=== PATIENT | female | born 1960 | race African-American/Black ===

== ENCOUNTER 2018-05-03 12:59 | Inpatient (IN) | payer OTHER ==
[2018-05-03 14:22] VITALS: BMI 18.8
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
[2018-05-03] MEDS ORDERED: NICOTINE POLACRILEX 2 MG GUM BC PRN (17:22)
[2018-05-03] MEDS ORDERED: MAG HYDROX/AL HYDROX/SIMETH 30 ML UNIT-DOSE CUP PO PRN (17:22)
[2018-05-03] MEDS ORDERED: diazePAM 5 MG TABLET PO PRN (17:22)
[2018-05-03] MEDS ORDERED: guaiFENesin/D-METHORPHAN HB 10 ML UNIT-DOSE CUPS PO PRN (17:22)
[2018-05-03] MEDS ORDERED: P-EPHED 60MG/TRIPROLIDI 2.5MG TABLET PO PRN (17:22)
[2018-05-03] MEDS ORDERED: ACETAMINOPHEN 325 MG TABLET (FP) PO PRN (17:22)
[2018-05-03] MEDS ORDERED: MAGNESIUM HYDROX 2400MG/30ML ORAL SUSPENSION 30 ML CUP PO PRN (17:22)
[2018-05-03] MEDS ORDERED: IBUPROFEN 400 MG TABLET (FP) PO PRN (17:22)
[2018-05-03] MEDS ORDERED: MAGNESIUM CITRATE 300 ML BOTTLE PO PRN (17:22)
[2018-05-03] MEDS ORDERED: MENTHOL/PHENOL 1 EACH UD MM PRN (17:22)
[2018-05-03] MEDS ORDERED: MELATONIN 5 MG TABLETS PO PRN (22:00)
[2018-05-03] MEDS: QUEtiapine FUMARATE 100 MG TABLET (FP) PO SCH (22:39)
[2018-05-03] MEDS: THIAMINE HCL 100 MG TABLET (FP) PO SCH (22:39)
[2018-05-03] MEDS: diazePAM 5 MG TABLET PO SCH (22:39)
[2018-05-04] MEDS: diazePAM 5 MG TABLET PO SCH ×3 (05:31→22:21)
[2018-05-04] MEDS ORDERED: METHADONE HCL 40 MG DISPERSABLE TABLET PO SCH (08:00)
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
[2018-05-04 10:10] LABS: HEMATOCRIT 41.1 % (32.4-45.2); MCH 33.3 pg (25.7-33.7); MCHC 34.1 g/dl (32.0-36.0); MEAN CELL VOLUME 97.7 fl (80-96); MEAN PLT VOLUME 8.1 fl (7.5-11.1); PLATELET COUNT 217 K/MM3 (134-434); RBC 4.21 M/mm3 (3.60-5.2); RDW 13.2 % (11.6-15.6); WHITE BLOOD COUNT 5.3 K/mm3 (4.0-10.0)
[2018-05-04] MEDS: METHADONE HCL 40 MG DISPERSABLE TABLET PO SCH (10:31)
[2018-05-04] MEDS: PRENATAL VITAMINS W/ FOLIC ACID TABLET (FP) PO SCH (10:32)
[2018-05-04 10:53] LABS: ALBUMIN 3.4 g/dl (3.4-5.0); ALK PHOS 80 U/L (45-117); ANION GAP 5 MMOL/L (8-16); BILIRUBIN,TOTAL 0.4 mg/dL (0.2-1); BLOOD UREA NITROGEN 30 mg/dL (7-18); CALCIUM 8.9 mg/dL (8.5-10.1); CHLORIDE 107 mmol/L (98-107); CO2 28 mmol/L (21-32); GLUCOSE,RANDOM 75 mg/dL (74-106); POTASSIUM 4.4 mmol/L (3.5-5.1); SGOT/AST 18 U/L (15-37); SGPT/ALT 18 U/L (13-61); SODIUM 140 mmol/L (136-145); TOT PROT 7.1 g/dl (6.4-8.2)
[2018-05-04] MEDS: SERTRALINE HCL 50 MG TABLET (FP) PO SCH (11:13)
[2018-05-04 13:27] LABS: RPR REACTIVE 1:1 (NONREACTIVE)
[2018-05-04] MEDS ORDERED: CYCLOBENZAPRINE HCL 10 MG TABLET (FP) PO PRN (15:30)
[2018-05-04 15:38] LABS: TREPONEMA ANTIBODY REACTIVE (NONREACTIVE)
--- NOTE | 2018-05-04 18:32 | PN ---
[facility] CIWA - CIWA Score Nausea/Vomitin-No Nausea/No Vomiting Muscle Tremors: 4-Moderate,w/Arms Extend Anxiety: 0-No Anxiety, at Ease Agitation: 0-Normal Activity Paroxysmal Sweats: 3 Orientation: 2-Disoriented Date<2 days Tacttile Disturbances: 0-None Auditory Disturbances: 1-Very Mild Visual Disturbances: 2-Mild Sensitivity Headache: 0-None Present CIWA-Ar Total Score: 12 S Progress Note (SOAP) Subjective: Tremors, Body Aches, Fatigue, Sweating, Constipation. Objective: PATIENT A & O X 2. PATIENT OBSERVED AMBULATING ON UNIT. IN NO ACUTE DISTRESS. 05/04/18 18:28 Vital Signs Temperature 99.7 F H 05/04/18 13:24 Pulse Rate 71 05/04/18 13:24 Respiratory Rate 18 05/04/18 13:24 Blood Pressure 110/68 05/04/18 13:24 O2 Sat by Pulse Oximetry (%) Laboratory Tests 05/04/18 05/04/18 05/04/18 07:00 07:00 07:00 WBC 5.3 RBC 4.21 Hgb 14.0 Hct 41.1 MCV 97.7 H MCH 33.3 MCHC 34.1 RDW 13.2 Plt Count 217 MPV 8.1 Sodium 140 Potassium 4.4 Chloride 107 Carbon Dioxide 28 Anion Gap 5 L BUN 30 H Creatinine 2.0 H Creat Clearance w eGFR 25.50 Random Glucose 75 Calcium 8.9 Total Bilirubin 0.4 AST 18 ALT 18 Alkaline Phosphatase 80 Total Protein 7.1 Albumin 3.4 RPR Titer Reactive 1:1 H T.pallidum Ab (MHA) Reactive LABS NOTED. REACTIVE 1:1 RPR RESULT (MHATP: REACTIVE) NOTED. PATIENT REPORTS THAT SHE COMPLETED A FULL COURSE OF ANTIBIOTIC TREATMENT FOR SYPHILIS IN THE PAST. PATIENT ADVISED TO FOLLOW-UP WITH CHILD AND FAMILY SERVICES SPECIALIST AT '[facility]' ([place], [place]) AFTER DISCHARGE FROM DETOX UNIT FOR FURTHER MEDICAL EVALUATION. PATIENT VERBALIZED UNDERSTANDING OF RECOMMENDATION. 05/04/18 18:29 05/04/18 18:30 Assessment: 05/04/18 18:28 WITHDRAWAL SYMPTOMS. Plan: CONTINUE DETOX. D/C MAGNESIUM-CONTAINING MEDS. FOR ABNORMAL ADMISSION RENAL LAB VALUES. BMP ON 05/06/2018 FOR ABNORMAL ADMISSION RENAL LAB VALUES.
[2018-05-04] MEDS: THIAMINE HCL 100 MG TABLET (FP) PO SCH (22:21)
[2018-05-04] MEDS: QUEtiapine FUMARATE 100 MG TABLET (FP) PO SCH (22:21)
[2018-05-05] MEDS: METHADONE HCL 40 MG DISPERSABLE TABLET PO SCH (06:16)
[2018-05-05] MEDS: PRENATAL VITAMINS W/ FOLIC ACID TABLET (FP) PO SCH (10:05)
[2018-05-05] MEDS: SERTRALINE HCL 50 MG TABLET (FP) PO SCH (10:05)
[2018-05-05] MEDS: diazePAM 5 MG TABLET PO SCH ×2 (10:05→22:28)
--- NOTE | 2018-05-05 16:21 | PN ---
[facility] CIWA - CIWA Score Nausea/Vomitin-No Nausea/No Vomiting Muscle Tremors: 2 Anxiety: 0-No Anxiety, at Ease Agitation: 0-Normal Activity Paroxysmal Sweats: 3 Orientation: 2-Disoriented Date<2 days Tacttile Disturbances: 1-Very Mild Itch/Numbness Auditory Disturbances: 1-Very Mild Visual Disturbances: 2-Mild Sensitivity Headache: 0-None Present CIWA-Ar Total Score: 11 S Progress Note (SOAP) Subjective: Tremors, Fatigue, Body Aches, Fatigue, Sweating. Objective: PATIENT A & O X 2 (UNCERTAIN ABOUT CURRENT DAY / DATE). PATIENT OBSERVED AMBULATING ON UNIT. IN NO ACUTE DISTRESS. 05/05/18 16:22 Vital Signs Temperature 98.6 F 05/05/18 13:41 Pulse Rate 70 05/05/18 13:41 Respiratory Rate 18 05/05/18 13:41 Blood Pressure 112/76 05/05/18 13:41 O2 Sat by Pulse Oximetry (%) Laboratory Tests 05/04/18 05/04/18 05/04/18 07:00 07:00 07:00 WBC 5.3 RBC 4.21 Hgb 14.0 Hct 41.1 MCV 97.7 H MCH 33.3 MCHC 34.1 RDW 13.2 Plt Count 217 MPV 8.1 Sodium 140 Potassium 4.4 Chloride 107 Carbon Dioxide 28 Anion Gap 5 L BUN 30 H Creatinine 2.0 H Creat Clearance w eGFR 25.50 Random Glucose 75 Calcium 8.9 Total Bilirubin 0.4 AST 18 ALT 18 Alkaline Phosphatase 80 Total Protein 7.1 Albumin 3.4 RPR Titer Reactive 1:1 H T.pallidum Ab (MHA) Reactive LABS NOTED. Assessment: 05/05/18 16:23 WITHDRAWAL SYMPTOMS. Plan: CONTINUE DETOX. BMP SCHEDULED FOR TOMORROW AM FOR ABNORMAL ADMISSION RENAL LAB RESULTS (NO HISTORY OF RENAL DISEASE REPORTED BY PATIENT AT TIME OF ADMISSION TO DETOX UNIT) .
[2018-05-05] MEDS: THIAMINE HCL 100 MG TABLET (FP) PO SCH (22:27)
[2018-05-05] MEDS: QUEtiapine FUMARATE 100 MG TABLET (FP) PO SCH (22:28)
[2018-05-06] MEDS: METHADONE HCL 40 MG DISPERSABLE TABLET PO SCH (06:15)
--- NOTE | 2018-05-06 09:48 | PN ---
S Progress Note (SOAP) Subjective: feeling better less tremor mild sweating social with peers in day room Objective: 05/06/18 09:47 Vital Signs Temperature 97.8 F 05/06/18 09:35 Pulse Rate 81 05/06/18 09:35 Respiratory Rate 18 05/06/18 09:35 Blood Pressure 100/70 05/06/18 09:35 O2 Sat by Pulse Oximetry (%) Laboratory Last Values WBC 5.3 K/mm3 (4.0-10.0) 05/04/18 07:00 RBC 4.21 M/mm3 (3.60-5.2) 05/04/18 07:00 Hgb 14.0 GM/dL (10.7-15.3) 05/04/18 07:00 Hct 41.1 % (32.4-45.2) 05/04/18 07:00 MCV 97.7 fl (80-96) H 05/04/18 07:00 MCH 33.3 pg (25.7-33.7) 05/04/18 07:00 MCHC 34.1 g/dl (32.0-36.0) 05/04/18 07:00 RDW 13.2 % (11.6-15.6) 05/04/18 07:00 Plt Count 217 K/MM3 (134-434) 05/04/18 07:00 MPV 8.1 fl (7.5-11.1) 05/04/18 07:00 Sodium 140 mmol/L (136-145) 05/04/18 07:00 Potassium 4.4 mmol/L (3.5-5.1) 05/04/18 07:00 Chloride 107 mmol/L (98-107) 05/04/18 07:00 Carbon Dioxide 28 mmol/L (21-32) 05/04/18 07:00 Anion Gap 5 MMOL/L (8-16) L 05/04/18 07:00 BUN 30 mg/dL (7-18) H 05/04/18 07:00 Creatinine 2.0 mg/dL (0.55-1.3) H 05/04/18 07:00 Creat Clearance w eGFR 25.50 (>60) 05/04/18 07:00 Random Glucose 75 mg/dL (74-106) 05/04/18 07:00 Calcium 8.9 mg/dL (8.5-10.1) 05/04/18 07:00 Total Bilirubin 0.4 mg/dL (0.2-1) 05/04/18 07:00 AST 18 U/L (15-37) 05/04/18 07:00 ALT 18 U/L (13-61) 05/04/18 07:00 Alkaline Phosphatase 80 U/L (45-117) 05/04/18 07:00 Total Protein 7.1 g/dl (6.4-8.2) 05/04/18 07:00 Albumin 3.4 g/dl (3.4-5.0) 05/04/18 07:00 RPR Titer Reactive 1:1 (NONREACTIVE) H 05/04/18 07:00 T.pallidum Ab (MHA) Reactive (NONREACTIVE) 05/04/18 07:00 lab noted Assessment: 05/06/18 09:47 mild alcohol withdrawal sx 05/06/18 09:47 Plan: continue detox
--- NOTE | 2018-05-06 09:49 | PN ---
S CIWA - CIWA Score Nausea/Vomitin-No Nausea/No Vomiting Muscle Tremors: 2 Anxiety: 1-Mildly Anxious Agitation: 2 Paroxysmal Sweats: No Perspiration Orientation: 0-Oriented Tacttile Disturbances: 0-None Auditory Disturbances: 0-None Visual Disturbances: 0-None Headache: 2-Mild CIWA-Ar Total Score: 7
[2018-05-06] MEDS: PRENATAL VITAMINS W/ FOLIC ACID TABLET (FP) PO SCH (10:14)
[2018-05-06] MEDS: SERTRALINE HCL 50 MG TABLET (FP) PO SCH (10:14)
[2018-05-06] MEDS: diazePAM 5 MG TABLET PO SCH ×2 (10:14→22:21)
[2018-05-06 10:37] LABS: ANION GAP 5 MMOL/L (8-16); BLOOD UREA NITROGEN 36 mg/dL (7-18); CALCIUM 8.6 mg/dL (8.5-10.1); CHLORIDE 106 mmol/L (98-107); CO2 29 mmol/L (21-32); GLUCOSE,RANDOM 74 mg/dL (74-106); POTASSIUM 4.1 mmol/L (3.5-5.1); SODIUM 140 mmol/L (136-145)
[2018-05-06] MEDS: THIAMINE HCL 100 MG TABLET (FP) PO SCH (22:21)
[2018-05-06] MEDS: QUEtiapine FUMARATE 100 MG TABLET (FP) PO SCH (22:30)
[2018-05-07] MEDS: METHADONE HCL 40 MG DISPERSABLE TABLET PO SCH (05:40)
[2018-05-07] MEDS ORDERED: diazePAM 5 MG TABLET PO SCH (10:00)
[2018-05-07] MEDS: SERTRALINE HCL 50 MG TABLET (FP) PO SCH (10:25)
[2018-05-07] MEDS: PRENATAL VITAMINS W/ FOLIC ACID TABLET (FP) PO SCH (10:26)
[2018-05-07 13:40] VITALS: BP 98/64; PULSE 64; TEMP 98
--- NOTE | 2018-05-07 14:07 | DS ---
[facility] Detox Discharge Summary Admission Date: 05/03/18 Discharge Date: 05/07/18 - History Present History: Alcohol Dependence Additional Comments: 58 years old female admitted on 05/03/18 for alcohol withdrawal stabilization [facility] Physical Exam Results Vital Signs: Vital Signs Temperature 98.0 F 05/07/18 13:39 Pulse Rate 64 05/07/18 13:39 Respiratory Rate 18 05/07/18 13:39 Blood Pressure 98/64 05/07/18 13:39 O2 Sat by Pulse Oximetry (%) Pertinent Admission Physical Exam Findings: alcohol withdrawal sx Laboratory Last Values WBC 5.3 K/mm3 (4.0-10.0) 05/04/18 07:00 RBC 4.21 M/mm3 (3.60-5.2) 05/04/18 07:00 Hgb 14.0 GM/dL (10.7-15.3) 05/04/18 07:00 Hct 41.1 % (32.4-45.2) 05/04/18 07:00 MCV 97.7 fl (80-96) H 05/04/18 07:00 MCH 33.3 pg (25.7-33.7) 05/04/18 07:00 MCHC 34.1 g/dl (32.0-36.0) 05/04/18 07:00 RDW 13.2 % (11.6-15.6) 05/04/18 07:00 Plt Count 217 K/MM3 (134-434) 05/04/18 07:00 MPV 8.1 fl (7.5-11.1) 05/04/18 07:00 Sodium 140 mmol/L (136-145) 05/06/18 07:45 Potassium 4.1 mmol/L (3.5-5.1) 05/06/18 07:45 Chloride 106 mmol/L (98-107) 05/06/18 07:45 Carbon Dioxide 29 mmol/L (21-32) 05/06/18 07:45 Anion Gap 5 MMOL/L (8-16) L 05/06/18 07:45 BUN 36 mg/dL (7-18) H 05/06/18 07:45 Creatinine 2.0 mg/dL (0.55-1.3) H 05/06/18 07:45 Creat Clearance w eGFR 25.50 (>60) 05/06/18 07:45 Random Glucose 74 mg/dL (74-106) 05/06/18 07:45 Calcium 8.6 mg/dL (8.5-10.1) 05/06/18 07:45 Total Bilirubin 0.4 mg/dL (0.2-1) 05/04/18 07:00 AST 18 U/L (15-37) 05/04/18 07:00 ALT 18 U/L (13-61) 05/04/18 07:00 Alkaline Phosphatase 80 U/L (45-117) 05/04/18 07:00 Total Protein 7.1 g/dl (6.4-8.2) 05/04/18 07:00 Albumin 3.4 g/dl (3.4-5.0) 05/04/18 07:00 RPR Titer Reactive 1:1 (NONREACTIVE) H 05/04/18 07:00 T.pallidum Ab (MHA) Reactive (NONREACTIVE) 05/04/18 07:00 lab noted chronic renal insufficiency - Treatment Hospital Course: Detox Protocol Followed, Detoxed Safely, Responded well, Discharged Condition Good, Rehab Referral Accepted Patient has Accepted a Rehab Referral to: [facility] - Medication Discharge Medications: Ambulatory Orders Multivitamins [Multivit ([facility] Formulary)] 1 tab PO HS 05/03/18 Quetiapine Fumarate [Seroquel] 100 mg PO HS 05/03/18 Sennosides [Senna] 8.6 mg PO HS PRN 05/03/18 Sertraline HCl [Zoloft] 100 mg PO DAILY 05/03/18 Topiramate [Topamax -] 50 mg PO BID 05/03/18 - Diagnosis (1) Renal insufficiency, mild Current Visit: Yes Status: Chronic (2) Alcohol dependence with uncomplicated withdrawal Current Visit: Yes Status: Acute (3) Nicotine dependence Current Visit: Yes Status: Acute Qualifiers: Nicotine product type: cigarettes Substance use status: in withdrawal Qualified Code(s): F17.213 - Nicotine dependence, cigarettes, with withdrawal (4) Methadone maintenance therapy patient Current Visit: Yes Status: Chronic - AMA Did Patient Leave Against Medical Advice: No
== END 2018-05-07 14:45 | disposition other institution (70) | DRG 773 ==
LOC: YASAS 12:59 → Y3N 17:14
PROVIDERS: ADMIT Surgery; ATTEND Surgery
PROC: HZ2ZZZZ Detoxification Services for Substance Abuse Treatment (ICD-10-PCS; principal; 2018-05-03)
DX: F10.230 Alcohol dependence with withdrawal, uncomplicated (principal); F11.20 Opioid dependence, uncomplicated; F14.20 Cocaine dependence, uncomplicated; F17.213 Nicotine dependence, cigarettes, with withdrawal; F19.24 Other psychoactive substance dependence with psychoactive substance-induced mood disorder; N28.9 Disorder of kidney and ureter, unspecified; Z87.42 Personal history of other diseases of the female genital tract
CPT/HCPCS: 36415; 80048; 80053; 85027; 86593; 86780

== ENCOUNTER 2018-05-07 14:42 | Inpatient (IN) | payer OTHER ==
--- NOTE | 2018-05-07 14:09 | HP ---
[facility] Rehab Assess/Revision - Admission History Admitted to Rehab from: [facility] Date of Admission to Rehab: 05/07/18 - Findings Detox History & Physical reviewed: Yes Concur with findings: Yes Comments/Additional Findings: transferred from detox to rehab admission as per protocol Inpatient Rehab Admission - Rehab Decision to Admit Inpatient rehab admission?: Yes - Initial Determination Are CD services needed?: Yes Free of communicable disease: Yes Not in need of hospitalization: Yes - Rehab Admission Criteria Previous failed treatment: Yes Poor recovery environment: Yes Comorbidities: Yes Lacks judgement: No Patient is meeting Inpatient Rehab admission criteria:: Yes
[~2018-05-07 14:42] MED LIST: ACETAMINOPHEN 325 MG TABLET (FP) PO PRN; LOPERAMIDE HCL 2 MG CAPSULE PO PRN; MENTHOL/PHENOL 1 EACH UD MM PRN; NICOTINE POLACRILEX 2 MG GUM BUC PRN; P-EPHED 60MG/TRIPROLIDI 2.5MG TABLET PO PRN; guaiFENesin/D-METHORPHAN HB 10 ML UNIT-DOSE CUPS PO PRN
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
[2018-05-07] MEDS ORDERED: NICOTINE 14 MG/24 HOURS TOPICAL PATCH TD PRN (16:00)
[2018-05-07] MEDS: THIAMINE HCL 100 MG TABLET (FP) PO SCH (21:34)
[2018-05-07] MEDS: TOPIRAMATE 25 MG TABLET (FP) PO SCH (21:35)
[2018-05-07] MEDS: QUEtiapine FUMARATE 100 MG TABLET (FP) PO SCH (21:35)
[2018-05-07] MEDS ORDERED: MELATONIN 5 MG TABLETS PO PRN (22:00)
[2018-05-07] MEDS ORDERED: PT OWN MED DRAWER 7, Y5N ONE (22:10)
[2018-05-08] MEDS ORDERED: METHADONE HCL 10 MG TABLET PO SCH (07:45)
[2018-05-08] MEDS: METHADONE HCL 40 MG DISPERSABLE TABLET PO SCH (08:00)
[2018-05-08] MEDS: PRENATAL VITAMINS W/ FOLIC ACID TABLET (FP) PO SCH (10:12)
[2018-05-08] MEDS: TOPIRAMATE 25 MG TABLET (FP) PO SCH ×2 (10:12→21:26)
[2018-05-08] MEDS: SERTRALINE HCL 50 MG TABLET (FP) PO SCH (10:13)
--- NOTE | 2018-05-08 11:15 | PN ---
[facility] Progress Note Note: PATIENT SEEN FOR C/O CHRONIC LOW BACK PAIN. PATIENT DENIES RECENT INJURIES AND DENIES NUMBNESS AND TINGLING TO LEGS. PATIENT STATES SHE HAS HAD LBP X YEARS. Vital Signs Temperature 98.0 F 05/08/18 07:17 Pulse Rate 69 05/08/18 07:17 Respiratory Rate 18 05/08/18 07:17 Blood Pressure 102/65 05/08/18 07:17 O2 Sat by Pulse Oximetry (%) PE: ALERT AND ORIENTED X 3 SKIN WARM AND DRY EXT FULL ROM, NO EDEMA AMB AD BENNY A/P: LBP WILL ADD FLEXERIL 10MG TID CONTINUE TO MONITOR CLINICALLY
[2018-05-08] MEDS: CYCLOBENZAPRINE HCL 10 MG TABLET (FP) PO SCH ×2 (14:19→21:26)
[2018-05-08] MEDS: QUEtiapine FUMARATE 100 MG TABLET (FP) PO SCH (21:26)
[2018-05-08] MEDS: THIAMINE HCL 100 MG TABLET (FP) PO SCH (21:26)
[2018-05-08 21:32] LABS: URINE APPEARANCE CLEAR; URINE BILIRUBIN NEGATIVE (<2.0 mg/dL); URINE COLOR STRAW; URINE GLUCOSE (UA) NEGATIVE (NEGATIVE); URINE KETONE NEGATIVE (NEGATIVE); URINE LEUK ESTERASE 3+ (NEGATIVE); URINE NITRITE NEGATIVE (NEGATIVE); URINE PROTEIN NEGATIVE (NEGATIVE); URINE UROBILINOGEN NEGATIVE mg/dL (0.2-1.0)
[2018-05-08 21:42] LABS: EPI CELLS RARE /HPF (FEW); URINE MUCUS RARE
[2018-05-08] MEDS ORDERED: PT OWN MED DRAWER 7, Y5N ONE (23:20)
[2018-05-09] MEDS: METHADONE HCL 40 MG DISPERSABLE TABLET PO SCH (06:57)
[2018-05-09] MEDS: CYCLOBENZAPRINE HCL 10 MG TABLET (FP) PO SCH ×3 (06:58→21:39)
[2018-05-09] MEDS: TOPIRAMATE 25 MG TABLET (FP) PO SCH ×2 (09:50→21:39)
[2018-05-09] MEDS: PRENATAL VITAMINS W/ FOLIC ACID TABLET (FP) PO SCH (09:50)
[2018-05-09] MEDS: SERTRALINE HCL 50 MG TABLET (FP) PO SCH (09:50)
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
[2018-05-09] MEDS: THIAMINE HCL 100 MG TABLET (FP) PO SCH (21:38)
[2018-05-09] MEDS: QUEtiapine FUMARATE 100 MG TABLET (FP) PO SCH (21:39)
[2018-05-10] MEDS: METHADONE HCL 40 MG DISPERSABLE TABLET PO SCH (06:41)
[2018-05-10] MEDS: CYCLOBENZAPRINE HCL 10 MG TABLET (FP) PO SCH ×3 (06:42→21:20)
[2018-05-10] MEDS: PRENATAL VITAMINS W/ FOLIC ACID TABLET (FP) PO SCH (09:39)
[2018-05-10] MEDS: SERTRALINE HCL 50 MG TABLET (FP) PO SCH (09:39)
[2018-05-10] MEDS: TOPIRAMATE 25 MG TABLET (FP) PO SCH ×2 (09:39→21:20)
[2018-05-10] MEDS: THIAMINE HCL 100 MG TABLET (FP) PO SCH (21:20)
[2018-05-10] MEDS: QUEtiapine FUMARATE 100 MG TABLET (FP) PO SCH (21:20)
[2018-05-11] MEDS: CYCLOBENZAPRINE HCL 10 MG TABLET (FP) PO SCH ×3 (06:53→21:26)
[2018-05-11] MEDS: METHADONE HCL 40 MG DISPERSABLE TABLET PO SCH (06:53)
[2018-05-11] MEDS: SERTRALINE HCL 50 MG TABLET (FP) PO SCH (09:58)
[2018-05-11] MEDS: PRENATAL VITAMINS W/ FOLIC ACID TABLET (FP) PO SCH (09:58)
[2018-05-11] MEDS: TOPIRAMATE 25 MG TABLET (FP) PO SCH ×2 (09:59→21:27)
--- NOTE | 2018-05-11 16:09 | PN ---
S Progress Note Note: PT C/O BILATERAL FEET TIGHTNESS AND SWELLING "SINCE I CAME TO TREATMENT". DENIES TRUAMA. Vital Signs - 24 hr 05/11/18 03:30 Respiratory 18 Rate EXTREMITIES:SLIGHT EDEMA LEFT>RIGHT. NON-PITTING AND NO REDNESS. A:EDEMA PLAN:ELEVATE BOTH LEGS WHILE IN BED. MONITOR SX AND RE-EVALUATE
[2018-05-11] MEDS: QUEtiapine FUMARATE 100 MG TABLET (FP) PO SCH (21:26)
[2018-05-11] MEDS: THIAMINE HCL 100 MG TABLET (FP) PO SCH (21:27)
[2018-05-12] MEDS: METHADONE HCL 40 MG DISPERSABLE TABLET PO SCH (07:04)
[2018-05-12] MEDS: CYCLOBENZAPRINE HCL 10 MG TABLET (FP) PO SCH ×3 (07:04→21:50)
[2018-05-12] MEDS: PRENATAL VITAMINS W/ FOLIC ACID TABLET (FP) PO SCH (10:01)
[2018-05-12] MEDS: TOPIRAMATE 25 MG TABLET (FP) PO SCH ×2 (10:01→21:50)
[2018-05-12] MEDS: SERTRALINE HCL 50 MG TABLET (FP) PO SCH (10:01)
[2018-05-12] MEDS: THIAMINE HCL 100 MG TABLET (FP) PO SCH (21:50)
[2018-05-12] MEDS: QUEtiapine FUMARATE 100 MG TABLET (FP) PO SCH (21:51)
[2018-05-13] MEDS: CYCLOBENZAPRINE HCL 10 MG TABLET (FP) PO SCH ×3 (06:57→21:43)
[2018-05-13] MEDS: METHADONE HCL 40 MG DISPERSABLE TABLET PO SCH (06:58)
[2018-05-13] MEDS: SERTRALINE HCL 50 MG TABLET (FP) PO SCH (09:42)
[2018-05-13] MEDS: TOPIRAMATE 25 MG TABLET (FP) PO SCH ×2 (09:42→21:43)
[2018-05-13] MEDS: PRENATAL VITAMINS W/ FOLIC ACID TABLET (FP) PO SCH (09:42)
[2018-05-13] MEDS: THIAMINE HCL 100 MG TABLET (FP) PO SCH (21:43)
[2018-05-13] MEDS: QUEtiapine FUMARATE 100 MG TABLET (FP) PO SCH (21:43)
[2018-05-14] MEDS: CYCLOBENZAPRINE HCL 10 MG TABLET (FP) PO SCH ×3 (06:39→21:30)
[2018-05-14] MEDS: METHADONE HCL 40 MG DISPERSABLE TABLET PO SCH (06:39)
[2018-05-14] MEDS: PRENATAL VITAMINS W/ FOLIC ACID TABLET (FP) PO SCH (09:55)
[2018-05-14] MEDS: TOPIRAMATE 25 MG TABLET (FP) PO SCH ×2 (09:55→21:30)
[2018-05-14] MEDS: SERTRALINE HCL 50 MG TABLET (FP) PO SCH (09:56)
--- NOTE | 2018-05-14 15:38 | PN ---
S Progress Note Note: Seen in f/u leg edema- much better today- says swelling down and feels better. O Vital Signs - 24 hr 05/14/18 05/14/18 05/14/18 00:30 03:30 06:54 Temperature 97.9 F Pulse Rate 64 Respiratory 18 18 18 Rate Blood Pressure 151/87 Laboratory Tests 05/08/18 15:40 Urine Color Straw Urine Appearance Clear Urine pH 7.0 Ur Specific [place] 1.011 Urine Protein Negative Urine Glucose (UA) Negative Urine Ketones Negative Urine Blood Negative Urine Nitrite Negative Urine Bilirubin Negative Urine Urobilinogen Negative Ur Leukocyte Esterase 3+ H Urine WBC (Auto) 4 Urine RBC (Auto) <1 Ur Epithelial Cells Rare Urine Mucus Rare a/p: leg edema- much better- trace/1+ edema- continue current management
[2018-05-14] MEDS: QUEtiapine FUMARATE 100 MG TABLET (FP) PO SCH (21:30)
[2018-05-14] MEDS: THIAMINE HCL 100 MG TABLET (FP) PO SCH (21:30)
[2018-05-15] MEDS: METHADONE HCL 40 MG DISPERSABLE TABLET PO SCH (06:22)
[2018-05-15] MEDS: CYCLOBENZAPRINE HCL 10 MG TABLET (FP) PO SCH ×3 (06:22→21:18)
[2018-05-15] MEDS: TOPIRAMATE 25 MG TABLET (FP) PO SCH ×2 (10:04→21:18)
[2018-05-15] MEDS: PRENATAL VITAMINS W/ FOLIC ACID TABLET (FP) PO SCH (10:04)
[2018-05-15] MEDS: SERTRALINE HCL 50 MG TABLET (FP) PO SCH (10:04)
[2018-05-15] MEDS: QUEtiapine FUMARATE 100 MG TABLET (FP) PO SCH (21:18)
[2018-05-15] MEDS: THIAMINE HCL 100 MG TABLET (FP) PO SCH (21:18)
[2018-05-16] MEDS: CYCLOBENZAPRINE HCL 10 MG TABLET (FP) PO SCH ×3 (06:23→21:23)
[2018-05-16] MEDS: METHADONE HCL 40 MG DISPERSABLE TABLET PO SCH (06:24)
[2018-05-16] MEDS: SERTRALINE HCL 50 MG TABLET (FP) PO SCH (10:09)
[2018-05-16] MEDS: TOPIRAMATE 25 MG TABLET (FP) PO SCH ×2 (10:09→21:23)
[2018-05-16] MEDS: PRENATAL VITAMINS W/ FOLIC ACID TABLET (FP) PO SCH (10:09)
[2018-05-16] MEDS: QUEtiapine FUMARATE 100 MG TABLET (FP) PO SCH (21:23)
[2018-05-16] MEDS: THIAMINE HCL 100 MG TABLET (FP) PO SCH (21:23)
[2018-05-17] MEDS: METHADONE HCL 40 MG DISPERSABLE TABLET PO SCH (06:31)
[2018-05-17] MEDS: CYCLOBENZAPRINE HCL 10 MG TABLET (FP) PO SCH ×3 (06:31→21:12)
[2018-05-17] MEDS ORDERED: PT OWN MED DRAWER 7, Y5N ONE (08:23)
[2018-05-17] MEDS: TOPIRAMATE 25 MG TABLET (FP) PO SCH ×2 (09:58→21:10)
[2018-05-17] MEDS: PRENATAL VITAMINS W/ FOLIC ACID TABLET (FP) PO SCH (09:58)
[2018-05-17] MEDS: SERTRALINE HCL 50 MG TABLET (FP) PO SCH (09:59)
[2018-05-17] MEDS: QUEtiapine FUMARATE 100 MG TABLET (FP) PO SCH (21:12)
[2018-05-17] MEDS: THIAMINE HCL 100 MG TABLET (FP) PO SCH (21:13)
[2018-05-18] MEDS: METHADONE HCL 40 MG DISPERSABLE TABLET PO SCH (06:40)
[2018-05-18] MEDS: CYCLOBENZAPRINE HCL 10 MG TABLET (FP) PO SCH ×3 (06:41→21:10)
[2018-05-18] MEDS: TOPIRAMATE 25 MG TABLET (FP) PO SCH ×2 (09:57→21:10)
[2018-05-18] MEDS: PRENATAL VITAMINS W/ FOLIC ACID TABLET (FP) PO SCH (09:57)
[2018-05-18] MEDS: SERTRALINE HCL 50 MG TABLET (FP) PO SCH (09:57)
[2018-05-18] MEDS ORDERED: MAG HYDROX/AL HYDROX/SIMETH 30 ML UNIT-DOSE CUP PO PRN (14:55)
[2018-05-18] MEDS ORDERED: MAGNESIUM CITRATE 300 ML BOTTLE PO PRN (14:55)
[2018-05-18] MEDS ORDERED: DOCUSATE SODIUM 100 MG CAPSULE (FP) PO ONE (16:30)
[2018-05-18] MEDS: MAGNESIUM HYDROX 2400MG/30ML ORAL SUSPENSION 30 ML CUP PO PRN (17:26)
[2018-05-18] MEDS ORDERED: MAG HYDROX/AL HYDROX/SIMETH -MYLANTA- ORAL SUSPENSION PO SCH (18:00)
[2018-05-18] MEDS: QUEtiapine FUMARATE 100 MG TABLET (FP) PO SCH (21:10)
[2018-05-18] MEDS: THIAMINE HCL 100 MG TABLET (FP) PO SCH (21:10)
[2018-05-18] MEDS: DOCUSATE SODIUM 100 MG CAPSULE (FP) PO SCH (21:11)
[2018-05-19] MEDS: CYCLOBENZAPRINE HCL 10 MG TABLET (FP) PO SCH ×3 (06:28→21:23)
[2018-05-19] MEDS: METHADONE HCL 40 MG DISPERSABLE TABLET PO SCH (06:29)
[2018-05-19] MEDS: DOCUSATE SODIUM 100 MG CAPSULE (FP) PO SCH ×3 (06:29→21:23)
[2018-05-19] MEDS: TOPIRAMATE 25 MG TABLET (FP) PO SCH ×2 (09:52→21:23)
[2018-05-19] MEDS: PRENATAL VITAMINS W/ FOLIC ACID TABLET (FP) PO SCH (09:53)
[2018-05-19] MEDS: SERTRALINE HCL 50 MG TABLET (FP) PO SCH (09:53)
[2018-05-19] MEDS: QUEtiapine FUMARATE 100 MG TABLET (FP) PO SCH (21:23)
[2018-05-19] MEDS: THIAMINE HCL 100 MG TABLET (FP) PO SCH (21:23)
[2018-05-20] MEDS: CYCLOBENZAPRINE HCL 10 MG TABLET (FP) PO SCH ×3 (06:21→21:15)
[2018-05-20] MEDS: DOCUSATE SODIUM 100 MG CAPSULE (FP) PO SCH ×3 (06:22→21:15)
[2018-05-20] MEDS: METHADONE HCL 40 MG DISPERSABLE TABLET PO SCH (06:22)
[2018-05-20] MEDS: TOPIRAMATE 25 MG TABLET (FP) PO SCH ×2 (09:40→21:15)
[2018-05-20] MEDS: PRENATAL VITAMINS W/ FOLIC ACID TABLET (FP) PO SCH (09:40)
[2018-05-20] MEDS: SERTRALINE HCL 50 MG TABLET (FP) PO SCH (09:41)
[2018-05-20] MEDS: THIAMINE HCL 100 MG TABLET (FP) PO SCH (21:15)
[2018-05-20] MEDS: QUEtiapine FUMARATE 100 MG TABLET (FP) PO SCH (21:37)
[2018-05-21] MEDS: METHADONE HCL 40 MG DISPERSABLE TABLET PO SCH (06:47)
[2018-05-21] MEDS: CYCLOBENZAPRINE HCL 10 MG TABLET (FP) PO SCH ×3 (06:48→21:21)
[2018-05-21] MEDS: DOCUSATE SODIUM 100 MG CAPSULE (FP) PO SCH ×3 (06:48→21:22)
[2018-05-21] MEDS: TOPIRAMATE 25 MG TABLET (FP) PO SCH ×2 (09:40→21:21)
[2018-05-21] MEDS: SERTRALINE HCL 50 MG TABLET (FP) PO SCH (09:40)
[2018-05-21] MEDS: PRENATAL VITAMINS W/ FOLIC ACID TABLET (FP) PO SCH (09:40)
[2018-05-21] MEDS: THIAMINE HCL 100 MG TABLET (FP) PO SCH (21:21)
[2018-05-21] MEDS: QUEtiapine FUMARATE 100 MG TABLET (FP) PO SCH (21:21)
[2018-05-22] MEDS: METHADONE HCL 40 MG DISPERSABLE TABLET PO SCH (06:38)
[2018-05-22] MEDS: CYCLOBENZAPRINE HCL 10 MG TABLET (FP) PO SCH ×3 (06:39→21:22)
[2018-05-22] MEDS: DOCUSATE SODIUM 100 MG CAPSULE (FP) PO SCH ×3 (06:39→21:22)
[2018-05-22] MEDS: PRENATAL VITAMINS W/ FOLIC ACID TABLET (FP) PO SCH (09:56)
[2018-05-22] MEDS: TOPIRAMATE 25 MG TABLET (FP) PO SCH ×2 (09:56→21:22)
[2018-05-22] MEDS: SERTRALINE HCL 50 MG TABLET (FP) PO SCH (09:57)
[2018-05-22] MEDS: THIAMINE HCL 100 MG TABLET (FP) PO SCH (21:22)
[2018-05-22] MEDS: QUEtiapine FUMARATE 100 MG TABLET (FP) PO SCH (21:23)
[2018-05-23] MEDS: CYCLOBENZAPRINE HCL 10 MG TABLET (FP) PO SCH ×3 (06:36→21:41)
[2018-05-23] MEDS: METHADONE HCL 40 MG DISPERSABLE TABLET PO SCH (06:36)
[2018-05-23] MEDS: DOCUSATE SODIUM 100 MG CAPSULE (FP) PO SCH ×3 (06:36→21:41)
[2018-05-23] MEDS: MAGNESIUM HYDROX 2400MG/30ML ORAL SUSPENSION 30 ML CUP PO PRN (07:33)
[2018-05-23] MEDS: TOPIRAMATE 25 MG TABLET (FP) PO SCH ×2 (09:48→21:41)
[2018-05-23] MEDS: PRENATAL VITAMINS W/ FOLIC ACID TABLET (FP) PO SCH (09:48)
[2018-05-23] MEDS: SERTRALINE HCL 50 MG TABLET (FP) PO SCH (09:49)
[2018-05-23] MEDS: THIAMINE HCL 100 MG TABLET (FP) PO SCH (21:41)
[2018-05-23] MEDS: QUEtiapine FUMARATE 100 MG TABLET (FP) PO SCH (21:41)
[2018-05-24] MEDS: METHADONE HCL 40 MG DISPERSABLE TABLET PO SCH (06:30)
[2018-05-24] MEDS: CYCLOBENZAPRINE HCL 10 MG TABLET (FP) PO SCH ×3 (06:30→21:06)
[2018-05-24] MEDS: DOCUSATE SODIUM 100 MG CAPSULE (FP) PO SCH ×3 (06:30→21:07)
[2018-05-24] MEDS: PRENATAL VITAMINS W/ FOLIC ACID TABLET (FP) PO SCH (09:56)
[2018-05-24] MEDS: SERTRALINE HCL 50 MG TABLET (FP) PO SCH (09:56)
[2018-05-24] MEDS: TOPIRAMATE 25 MG TABLET (FP) PO SCH ×2 (09:56→21:06)
[2018-05-24] MEDS: THIAMINE HCL 100 MG TABLET (FP) PO SCH (21:06)
[2018-05-24] MEDS: QUEtiapine FUMARATE 100 MG TABLET (FP) PO SCH (21:06)
[2018-05-25] MEDS: CYCLOBENZAPRINE HCL 10 MG TABLET (FP) PO SCH ×3 (06:35→21:25)
[2018-05-25] MEDS: METHADONE HCL 40 MG DISPERSABLE TABLET PO SCH (06:35)
[2018-05-25] MEDS: DOCUSATE SODIUM 100 MG CAPSULE (FP) PO SCH ×3 (06:35→21:25)
[2018-05-25] MEDS: TOPIRAMATE 25 MG TABLET (FP) PO SCH ×2 (09:50→21:24)
[2018-05-25] MEDS: SERTRALINE HCL 50 MG TABLET (FP) PO SCH (09:50)
[2018-05-25] MEDS: PRENATAL VITAMINS W/ FOLIC ACID TABLET (FP) PO SCH (09:50)
[2018-05-25] MEDS: MAGNESIUM HYDROX 2400MG/30ML ORAL SUSPENSION 30 ML CUP PO PRN (12:44)
[2018-05-25] MEDS: QUEtiapine FUMARATE 100 MG TABLET (FP) PO SCH (21:25)
[2018-05-25] MEDS: THIAMINE HCL 100 MG TABLET (FP) PO SCH (21:25)
[2018-05-26] MEDS: DOCUSATE SODIUM 100 MG CAPSULE (FP) PO SCH ×3 (06:52→21:43)
[2018-05-26] MEDS: METHADONE HCL 40 MG DISPERSABLE TABLET PO SCH (06:52)
[2018-05-26] MEDS: CYCLOBENZAPRINE HCL 10 MG TABLET (FP) PO SCH ×3 (06:52→21:43)
[2018-05-26] MEDS: SERTRALINE HCL 50 MG TABLET (FP) PO SCH (09:59)
[2018-05-26] MEDS: PRENATAL VITAMINS W/ FOLIC ACID TABLET (FP) PO SCH (09:59)
[2018-05-26] MEDS: TOPIRAMATE 25 MG TABLET (FP) PO SCH ×2 (09:59→21:43)
[2018-05-26] MEDS: QUEtiapine FUMARATE 100 MG TABLET (FP) PO SCH (21:43)
[2018-05-26] MEDS: THIAMINE HCL 100 MG TABLET (FP) PO SCH (21:43)
[2018-05-27] MEDS: METHADONE HCL 40 MG DISPERSABLE TABLET PO SCH (06:48)
[2018-05-27] MEDS: DOCUSATE SODIUM 100 MG CAPSULE (FP) PO SCH ×3 (06:49→21:49)
[2018-05-27] MEDS: CYCLOBENZAPRINE HCL 10 MG TABLET (FP) PO SCH ×3 (06:49→21:49)
[2018-05-27] MEDS: TOPIRAMATE 25 MG TABLET (FP) PO SCH ×2 (09:50→21:49)
[2018-05-27] MEDS: PRENATAL VITAMINS W/ FOLIC ACID TABLET (FP) PO SCH (09:50)
[2018-05-27] MEDS: SERTRALINE HCL 50 MG TABLET (FP) PO SCH (09:50)
[2018-05-27] MEDS: THIAMINE HCL 100 MG TABLET (FP) PO SCH (21:49)
[2018-05-27] MEDS: QUEtiapine FUMARATE 100 MG TABLET (FP) PO SCH (21:49)
[2018-05-28] MEDS: DOCUSATE SODIUM 100 MG CAPSULE (FP) PO SCH ×3 (06:43→21:25)
[2018-05-28] MEDS: CYCLOBENZAPRINE HCL 10 MG TABLET (FP) PO SCH ×3 (06:43→21:25)
[2018-05-28] MEDS: METHADONE HCL 40 MG DISPERSABLE TABLET PO SCH (06:43)
[2018-05-28] MEDS: TOPIRAMATE 25 MG TABLET (FP) PO SCH ×2 (09:48→21:25)
[2018-05-28] MEDS: PRENATAL VITAMINS W/ FOLIC ACID TABLET (FP) PO SCH (09:48)
[2018-05-28] MEDS: SERTRALINE HCL 50 MG TABLET (FP) PO SCH (09:49)
[2018-05-28] MEDS: THIAMINE HCL 100 MG TABLET (FP) PO SCH (21:25)
[2018-05-28] MEDS: QUEtiapine FUMARATE 100 MG TABLET (FP) PO SCH (21:25)
[2018-05-29] MEDS ORDERED: METHADONE HCL 40 MG DISPERSABLE TABLET PO SCH (06:00)
[2018-05-29] MEDS: CYCLOBENZAPRINE HCL 10 MG TABLET (FP) PO SCH (06:03)
[2018-05-29] MEDS: DOCUSATE SODIUM 100 MG CAPSULE (FP) PO SCH (06:03)
[2018-05-29 06:47] VITALS: BP 125/86; PULSE 80; TEMP 97.7
--- NOTE | 2018-05-29 07:16 | PN ---
[facility] Progress Note Note: Patient is discharged today. Scripts for her medications(Zoloft, Seroquel, Topiramate) are electronically transmitted to [facility] at [address] [place] [address]
[2018-05-29] MEDS: PRENATAL VITAMINS W/ FOLIC ACID TABLET (FP) PO SCH (10:00)
[2018-05-29] MEDS: TOPIRAMATE 25 MG TABLET (FP) PO SCH (10:00)
[2018-05-29] MEDS: SERTRALINE HCL 50 MG TABLET (FP) PO SCH (10:00)
--- NOTE | 2018-05-29 10:42 | PN ---
[facility] Progress Note Note: PT COMPLETED REHAB AND DISCHARGED TODAY. PT MET WITH COUNSELLING AND HAS BEEN REFERRED TO FOLLOW UP WITH HER MMTP AT [facility] [place] ON [address] [place], [place]. PT REPORTS SHE HAS HER PRIMARY CARE WITH DR. JOCELINE CALVERT AT [facility] ON [address], [place]: FOR MEDICAL MANAGMENT. PT IS ALERT O X 3. DENIES S/H/I. Home Medications Medication Instructions Recorded Multivitamins [Multivit ([facility] 1 tab PO HS 05/03/18 Formulary)] Quetiapine Fumarate [Seroquel] 100 mg PO HS 05/03/18 Sennosides [Senna] 8.6 mg PO HS PRN 05/03/18 Sertraline HCl [Zoloft] 50 mg PO DAILY 05/03/18 Topiramate [Topamax -] 50 mg PO BID 05/03/18 Quetiapine Fumarate [Seroquel] 100 mg PO HS #30 tablet 05/29/18 Sertraline HCl [Zoloft -] 50 mg PO DAILY #30 tablet 05/29/18 Topiramate [Topamax] 50 mg PO BID #60 tablet 05/29/18 Vital Signs (72 hours) 05/27/18 05/27/18 05/27/18 00:30 03:30 07:22 Temperature 97.1 F L Pulse Rate 73 Respiratory 18 18 18 Rate Blood Pressure 132/95 05/28/18 05/28/18 05/28/18 00:30 03:30 07:07 Temperature 97.6 F Pulse Rate 82 Respiratory 18 18 18 Rate Blood Pressure 136/87 05/29/18 05/29/18 05/29/18 00:30 03:28 06:46 Temperature 97.7 F Pulse Rate 80 Respiratory 18 18 18 Rate Blood Pressure 125/86 Laboratory Tests 05/08/18 15:40 Urine Color Straw Urine Appearance Clear Urine pH 7.0 Ur Specific [place] 1.011 Urine Protein Negative Urine Glucose (UA) Negative Urine Ketones Negative Urine Blood Negative Urine Nitrite Negative Urine Bilirubin Negative Urine Urobilinogen Negative Ur Leukocyte Esterase 3+ H Urine WBC (Auto) 4 Urine RBC (Auto) <1 Ur Epithelial Cells Rare Urine Mucus Rare NAD MEDICALLY STABLE PLAN:FOLLOW UP WITH CD AFTERCARE RECOMMENDED ON 05/30/18 AT 9:00 A.M. FOLLOW UP WITH YOUR PCP ABOVE FOR MEDICAL MANAGEMENT ON 06/22/18 AT 15:00 P.M.
== END 2018-05-29 10:05 | disposition home or self-care (01) | DRG 772 ==
LOC: YASAS 14:42 → Y3E 14:43
PROVIDERS: ADMIT Neuromusculoskeletal Medicine & OMM; ATTEND Neuromusculoskeletal Medicine & OMM
PROC: HZ42ZZZ Group Counseling for Substance Abuse Treatment, Cognitive-Behavioral (ICD-10-PCS; principal; 2018-05-07)
DX: F10.230 Alcohol dependence with withdrawal, uncomplicated (principal); F11.20 Opioid dependence, uncomplicated; F14.20 Cocaine dependence, uncomplicated; F17.213 Nicotine dependence, cigarettes, with withdrawal; F19.24 Other psychoactive substance dependence with psychoactive substance-induced mood disorder; R60.0 Localized edema; M54.5 Low back pain; N28.9 Disorder of kidney and ureter, unspecified
CPT/HCPCS: 81003; 81015

== ENCOUNTER 2018-12-06 14:19 | Inpatient (IN) | payer OTHER | END 2018-12-10 14:13 | disposition other institution (70) | LOC: YASAS 14:19 → Y3E 20:03 → Y3N 21:13 ==

== ENCOUNTER 2018-12-10 14:06 | Inpatient (IN) | payer OTHER ==
--- NOTE | 2018-12-10 13:13 | HP ---
[facility]UR[facility] SOLANO Rehab Assess/Revision - Admission History Admitted to Rehab from: [facility] Date of Admission to Rehab: 12/10/18 - Findings Detox History & Physical reviewed: Yes Concur with findings: Yes Comments/Additional Findings: transferred from detox to rehab admission as per protocol Inpatient Rehab Admission - Rehab Decision to Admit Inpatient rehab admission?: Yes - Initial Determination Are CD services needed?: Yes Free of communicable disease: Yes Not in need of hospitalization: Yes - Rehab Admission Criteria Previous failed treatment: Yes Poor recovery environment: Yes Comorbidities: Yes Lacks judgement: Yes Patient is meeting Inpatient Rehab admission criteria:: Yes
[~2018-12-10 14:06] MED LIST changes: +IBUPROFEN 400 MG TABLET (FP) PO PRN; +MAGNESIUM CITRATE 300 ML BOTTLE PO PRN; +NICOTINE 7 MG/24 HOURS TOPICAL PATCH TD PRN; +NICOTINE POLACRILEX 2 MG GUM BC PRN; -NICOTINE POLACRILEX 2 MG GUM BUC PRN; +guaiFENesin 200 MG/10 ML 10 ML UNIT-DOSE CUPS PO PRN; -guaiFENesin/D-METHORPHAN HB 10 ML UNIT-DOSE CUPS PO PRN
[2018-12-10] MEDS: THIAMINE HCL 100 MG TABLET (FP) PO SCH (21:28)
[2018-12-10] MEDS: QUEtiapine FUMARATE 100 MG TABLET (FP) PO SCH (21:28)
[2018-12-10] MEDS: MELATONIN 5 MG TABLETS PO PRN (21:28)
[2018-12-11] MEDS: METHADONE HCL 40 MG DISPERSABLE TABLET PO SCH (06:36)
[2018-12-11] MEDS: SERTRALINE HCL 50 MG TABLET (FP) PO SCH (09:54)
[2018-12-11] MEDS: PRENATAL VITAMINS W/ FOLIC ACID TABLET (FP) PO SCH (09:54)
[2018-12-11] MEDS ORDERED: SERTRALINE HCL 50 MG PO SCH (10:00)
[2018-12-11] MEDS: QUEtiapine FUMARATE 100 MG TABLET (FP) PO SCH (21:12)
[2018-12-11] MEDS: MELATONIN 5 MG TABLETS PO PRN (21:12)
[2018-12-11] MEDS: THIAMINE HCL 100 MG TABLET (FP) PO SCH (21:12)
[2018-12-12] MEDS: METHADONE HCL 40 MG DISPERSABLE TABLET PO SCH (06:38)
[2018-12-12] MEDS: PRENATAL VITAMINS W/ FOLIC ACID TABLET (FP) PO SCH (09:50)
[2018-12-12] MEDS: SERTRALINE HCL 50 MG TABLET (FP) PO SCH (09:50)
[2018-12-12] MEDS: hydrOXYzine PAMOATE 50 MG CAPSULE (FP) PO PRN ×2 (13:41→21:10)
[2018-12-12] MEDS: MAGNESIUM HYDROX 2400MG/30ML ORAL SUSPENSION 30 ML CUP PO PRN (19:58)
[2018-12-12] MEDS: THIAMINE HCL 100 MG TABLET (FP) PO SCH (21:08)
[2018-12-12] MEDS: QUEtiapine FUMARATE 100 MG TABLET (FP) PO SCH (21:10)
[2018-12-13] MEDS: METHADONE HCL 40 MG DISPERSABLE TABLET PO SCH (06:59)
[2018-12-13] MEDS: SERTRALINE HCL 50 MG TABLET (FP) PO SCH (09:40)
[2018-12-13] MEDS: PRENATAL VITAMINS W/ FOLIC ACID TABLET (FP) PO SCH (09:40)
[2018-12-13] MEDS: hydrOXYzine PAMOATE 50 MG CAPSULE (FP) PO PRN ×2 (09:41→21:11)
[2018-12-13] MEDS: THIAMINE HCL 100 MG TABLET (FP) PO SCH (21:10)
[2018-12-13] MEDS: QUEtiapine FUMARATE 100 MG TABLET (FP) PO SCH (21:12)
[2018-12-14] MEDS: METHADONE HCL 40 MG DISPERSABLE TABLET PO SCH (06:52)
[2018-12-14] MEDS: PRENATAL VITAMINS W/ FOLIC ACID TABLET (FP) PO SCH (09:43)
[2018-12-14] MEDS: SERTRALINE HCL 50 MG TABLET (FP) PO SCH (09:43)
[2018-12-14] MEDS: hydrOXYzine PAMOATE 50 MG CAPSULE (FP) PO PRN (09:44)
[2018-12-14] MEDS: MAG HYDROX/AL HYDROX/SIMETH 30 ML UNIT-DOSE CUP PO PRN (13:23)
[2018-12-14] MEDS: QUEtiapine FUMARATE 100 MG TABLET (FP) PO SCH (21:28)
[2018-12-14] MEDS: THIAMINE HCL 100 MG TABLET (FP) PO SCH (21:28)
[2018-12-15] MEDS: METHADONE HCL 40 MG DISPERSABLE TABLET PO SCH (06:50)
[2018-12-15] MEDS: SERTRALINE HCL 50 MG TABLET (FP) PO SCH (10:09)
[2018-12-15] MEDS: PRENATAL VITAMINS W/ FOLIC ACID TABLET (FP) PO SCH (10:09)
[2018-12-15] MEDS: QUEtiapine FUMARATE 100 MG TABLET (FP) PO SCH (21:43)
[2018-12-15] MEDS: hydrOXYzine PAMOATE 50 MG CAPSULE (FP) PO PRN (21:43)
[2018-12-15] MEDS: THIAMINE HCL 100 MG TABLET (FP) PO SCH (21:43)
[2018-12-16] MEDS: METHADONE HCL 40 MG DISPERSABLE TABLET PO SCH (07:08)
[2018-12-16] MEDS: PRENATAL VITAMINS W/ FOLIC ACID TABLET (FP) PO SCH (10:03)
[2018-12-16] MEDS: SERTRALINE HCL 50 MG TABLET (FP) PO SCH (10:03)
[2018-12-16] MEDS: hydrOXYzine PAMOATE 50 MG CAPSULE (FP) PO PRN ×2 (10:04→21:28)
[2018-12-16] MEDS: THIAMINE HCL 100 MG TABLET (FP) PO SCH (21:27)
[2018-12-16] MEDS: QUEtiapine FUMARATE 100 MG TABLET (FP) PO SCH (21:27)
[2018-12-17] MEDS: METHADONE HCL 40 MG DISPERSABLE TABLET PO SCH (06:26)
[2018-12-17] MEDS: hydrOXYzine PAMOATE 50 MG CAPSULE (FP) PO PRN ×2 (10:06→21:49)
[2018-12-17] MEDS: PRENATAL VITAMINS W/ FOLIC ACID TABLET (FP) PO SCH (10:06)
[2018-12-17] MEDS: SERTRALINE HCL 50 MG TABLET (FP) PO SCH (10:06)
[2018-12-17] MEDS: MAGNESIUM HYDROX 2400MG/30ML ORAL SUSPENSION 30 ML CUP PO PRN (13:40)
[2018-12-17] MEDS: QUEtiapine FUMARATE 100 MG TABLET (FP) PO SCH (21:49)
[2018-12-17] MEDS: MELATONIN 5 MG TABLETS PO PRN (21:50)
[2018-12-17] MEDS: THIAMINE HCL 100 MG TABLET (FP) PO SCH (21:50)
[2018-12-18] MEDS: METHADONE HCL 40 MG DISPERSABLE TABLET PO SCH (06:48)
[2018-12-18] MEDS: SERTRALINE HCL 50 MG TABLET (FP) PO SCH (10:14)
[2018-12-18] MEDS: PRENATAL VITAMINS W/ FOLIC ACID TABLET (FP) PO SCH (10:14)
[2018-12-18] MEDS: hydrOXYzine PAMOATE 50 MG CAPSULE (FP) PO PRN ×3 (10:15→21:48)
[2018-12-18] MEDS: QUEtiapine FUMARATE 100 MG TABLET (FP) PO SCH (21:48)
[2018-12-18] MEDS: THIAMINE HCL 100 MG TABLET (FP) PO SCH (21:48)
[2018-12-19] MEDS: METHADONE HCL 40 MG DISPERSABLE TABLET PO SCH (06:49)
[2018-12-19] MEDS: SERTRALINE HCL 50 MG TABLET (FP) PO SCH (09:41)
[2018-12-19] MEDS: PRENATAL VITAMINS W/ FOLIC ACID TABLET (FP) PO SCH (09:41)
[2018-12-19] MEDS: hydrOXYzine PAMOATE 50 MG CAPSULE (FP) PO PRN ×2 (09:41→21:56)
[2018-12-19] MEDS: THIAMINE HCL 100 MG TABLET (FP) PO SCH (21:55)
[2018-12-19] MEDS: MELATONIN 5 MG TABLETS PO PRN (21:56)
[2018-12-19] MEDS: QUEtiapine FUMARATE 100 MG TABLET (FP) PO SCH (21:56)
[2018-12-20] MEDS: METHADONE HCL 40 MG DISPERSABLE TABLET PO SCH (06:54)
[2018-12-20] MEDS: SERTRALINE HCL 50 MG TABLET (FP) PO SCH (09:50)
[2018-12-20] MEDS: PRENATAL VITAMINS W/ FOLIC ACID TABLET (FP) PO SCH (09:50)
[2018-12-20] MEDS: hydrOXYzine PAMOATE 50 MG CAPSULE (FP) PO PRN ×2 (09:51→21:43)
[2018-12-20] MEDS: QUEtiapine FUMARATE 100 MG TABLET (FP) PO SCH (21:42)
[2018-12-20] MEDS: THIAMINE HCL 100 MG TABLET (FP) PO SCH (21:43)
[2018-12-21] MEDS: METHADONE HCL 40 MG DISPERSABLE TABLET PO SCH (06:26)
[2018-12-21] MEDS: PRENATAL VITAMINS W/ FOLIC ACID TABLET (FP) PO SCH (10:16)
[2018-12-21] MEDS: SERTRALINE HCL 50 MG TABLET (FP) PO SCH (10:16)
[2018-12-21] MEDS: hydrOXYzine PAMOATE 50 MG CAPSULE (FP) PO PRN ×2 (10:17→20:28)
[2018-12-21] MEDS: MAG HYDROX/AL HYDROX/SIMETH 30 ML UNIT-DOSE CUP PO PRN (15:24)
[2018-12-21] MEDS: QUEtiapine FUMARATE 100 MG TABLET (FP) PO SCH (21:18)
[2018-12-21] MEDS: THIAMINE HCL 100 MG TABLET (FP) PO SCH (21:18)
[2018-12-22] MEDS: METHADONE HCL 40 MG DISPERSABLE TABLET PO SCH (06:53)
[2018-12-22] MEDS: SERTRALINE HCL 50 MG TABLET (FP) PO SCH (09:37)
[2018-12-22] MEDS: hydrOXYzine PAMOATE 50 MG CAPSULE (FP) PO PRN ×2 (09:37→14:16)
[2018-12-22] MEDS: PRENATAL VITAMINS W/ FOLIC ACID TABLET (FP) PO SCH (09:37)
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
[2018-12-22] MEDS: QUEtiapine FUMARATE 100 MG TABLET (FP) PO SCH (21:41)
[2018-12-22] MEDS: THIAMINE HCL 100 MG TABLET (FP) PO SCH (21:41)
[2018-12-23] MEDS: METHADONE HCL 40 MG DISPERSABLE TABLET PO SCH (06:41)
[2018-12-23] MEDS: hydrOXYzine PAMOATE 50 MG CAPSULE (FP) PO PRN (09:51)
[2018-12-23] MEDS: SERTRALINE HCL 50 MG TABLET (FP) PO SCH (09:51)
[2018-12-23] MEDS: PRENATAL VITAMINS W/ FOLIC ACID TABLET (FP) PO SCH (09:51)
[2018-12-23] MEDS: THIAMINE HCL 100 MG TABLET (FP) PO SCH (21:17)
[2018-12-23] MEDS: QUEtiapine FUMARATE 100 MG TABLET (FP) PO SCH (21:17)
[2018-12-23] MEDS: MELATONIN 5 MG TABLETS PO PRN (21:18)
[2018-12-24] MEDS ORDERED: METHADONE HCL 10 MG TABLET PO SCH (06:30)
[2018-12-24] MEDS: METHADONE HCL 40 MG DISPERSABLE TABLET PO SCH (07:21)
[2018-12-24] MEDS: SERTRALINE HCL 50 MG TABLET (FP) PO SCH (09:58)
[2018-12-24] MEDS: PRENATAL VITAMINS W/ FOLIC ACID TABLET (FP) PO SCH (09:58)
[2018-12-24] MEDS: hydrOXYzine PAMOATE 50 MG CAPSULE (FP) PO PRN ×2 (09:58→21:05)
[2018-12-24] MEDS: MELATONIN 5 MG TABLETS PO PRN (21:05)
[2018-12-24] MEDS: THIAMINE HCL 100 MG TABLET (FP) PO SCH (21:05)
[2018-12-24] MEDS: QUEtiapine FUMARATE 100 MG TABLET (FP) PO SCH (21:06)
[2018-12-25] MEDS: METHADONE HCL 40 MG DISPERSABLE TABLET PO SCH (06:35)
[2018-12-25] MEDS: SERTRALINE HCL 50 MG TABLET (FP) PO SCH (09:50)
[2018-12-25] MEDS: PRENATAL VITAMINS W/ FOLIC ACID TABLET (FP) PO SCH (09:50)
[2018-12-25] MEDS: hydrOXYzine PAMOATE 50 MG CAPSULE (FP) PO PRN ×2 (09:51→21:20)
[2018-12-25] MEDS: QUEtiapine FUMARATE 100 MG TABLET (FP) PO SCH (21:18)
[2018-12-25] MEDS: THIAMINE HCL 100 MG TABLET (FP) PO SCH (21:18)
[2018-12-25] MEDS: MELATONIN 5 MG TABLETS PO PRN (21:18)
[2018-12-26] MEDS: METHADONE HCL 40 MG DISPERSABLE TABLET PO SCH (06:45)
[2018-12-26] MEDS: PRENATAL VITAMINS W/ FOLIC ACID TABLET (FP) PO SCH (09:42)
[2018-12-26] MEDS: hydrOXYzine PAMOATE 50 MG CAPSULE (FP) PO PRN ×2 (09:42→21:21)
[2018-12-26] MEDS: SERTRALINE HCL 50 MG TABLET (FP) PO SCH (09:42)
[2018-12-26] MEDS: MELATONIN 5 MG TABLETS PO PRN (21:21)
[2018-12-26] MEDS: THIAMINE HCL 100 MG TABLET (FP) PO SCH (21:21)
[2018-12-26] MEDS: QUEtiapine FUMARATE 100 MG TABLET (FP) PO SCH (21:22)
[2018-12-27] MEDS: METHADONE HCL 40 MG DISPERSABLE TABLET PO SCH (06:43)
[2018-12-27] MEDS: SERTRALINE HCL 50 MG TABLET (FP) PO SCH (09:40)
[2018-12-27] MEDS: PRENATAL VITAMINS W/ FOLIC ACID TABLET (FP) PO SCH (09:40)
[2018-12-27] MEDS: hydrOXYzine PAMOATE 50 MG CAPSULE (FP) PO PRN ×2 (09:41→21:08)
--- NOTE | 2018-12-27 10:51 | DS ---
[facility] Rehab Discharge Summary - [facility] Rehab Discharge Summary Admission Date: 12/10/18 Discharge Date: 12/27/18 - History Present History: Alcohol dependence, Cannabis dependence, Cocaine dependence, MMTP, Opioid dependence Pertinent Past History: Pt admitted on 12/06/18 for detox from EtOH, cocaine, heroin. Heroin(nasal) 2- 3bags, 1-2x/weekly. Pt is in a Methadone MAT. Pt states she is doing well and will f/u with PCP in the [place]- does not remember her name. Pt is in a assisted living facility where she has a school social worker who helps her. Pt is an MAT methadone program and will follow up with them for ongoing substance use services. Pt did not need any medical medications - Discharge Physical Exam Vital Signs: Vital Signs Temperature 97.9 F 12/27/18 07:14 Pulse Rate 69 12/27/18 07:14 Respiratory Rate 18 12/27/18 07:14 Blood Pressure 149/88 12/27/18 07:14 O2 Sat by Pulse Oximetry (%) - Treatment Discharge Condition: Discharge condition good - Medication Discharge Medications: Ambulatory Orders Multivitamins [Multivit ([facility] Formulary)] 1 tab PO HS 05/03/18 Sennosides [Senna] 8.6 mg PO HS PRN 05/03/18 Sertraline HCl [Zoloft] 50 mg PO DAILY 05/03/18 Quetiapine Fumarate [Seroquel -] 100 mg PO HS #30 tablet 05/29/18 Topiramate [Topamax] 50 mg PO BID #60 tablet 05/29/18 Methadone [Dolophine -] 120 mg PO DAILY 12/06/18 - Medication-Assisted Treatment (MAT) Medication-Assisted Treatment (MAT): Yes - Discharge Instructions Diet, activity, other medical instructions: Diet: Activity: Other medical instructions: - Diagnosis (1) Alcohol dependence Current Visit: Yes Status: Chronic Qualifiers: Substance use status: in withdrawal (2) Cocaine dependence Current Visit: Yes Status: Chronic Qualifiers: Substance use status: uncomplicated Qualified Code(s): F14.20 - Cocaine dependence, uncomplicated (3) Nicotine dependence Current Visit: Yes Status: Chronic Qualifiers: Nicotine product type: cigarettes Substance use status: in withdrawal Qualified Code(s): F17.213 - Nicotine dependence, cigarettes, with withdrawal (4) Opioid dependence on agonist therapy Current Visit: Yes Status: Chronic (5) Alcohol dependence with uncomplicated withdrawal Current Visit: No Status: Acute (6) Methadone maintenance therapy patient Current Visit: No Status: Chronic (7) Substance induced mood disorder Current Visit: No Status: Suspected - AMA Did Patient Leave Against Medical Advice: No
--- NOTE | 2018-12-27 14:35 | PN ---
[facility] Progress Note Note: Patient is scheduled for dischargetomorrow. Scripts for 30 days supply of medications(Seroquel 50 mg/hs, Zoloft 50 mg/day) will be electronically transmitted to [facility] at [address] [place] [address]
[2018-12-27] MEDS: MELATONIN 5 MG TABLETS PO PRN (21:09)
[2018-12-27] MEDS: QUEtiapine FUMARATE 100 MG TABLET (FP) PO SCH (21:09)
[2018-12-27] MEDS: THIAMINE HCL 100 MG TABLET (FP) PO SCH (21:09)
[2018-12-28] MEDS: METHADONE HCL 40 MG DISPERSABLE TABLET PO SCH (06:26)
[2018-12-28 06:49] VITALS: BP 149/81; PULSE 60; TEMP 97.8
== END 2018-12-28 08:48 | disposition home or self-care (01) | DRG 772 ==
LOC: YASAS 14:06 → Y3E 14:07
PROVIDERS: ADMIT Neuromusculoskeletal Medicine & OMM; ATTEND Neuromusculoskeletal Medicine & OMM
PROC: HZ42ZZZ Group Counseling for Substance Abuse Treatment, Cognitive-Behavioral (ICD-10-PCS; principal; 2018-12-10)
DX: F10.20 Alcohol dependence, uncomplicated (principal); F11.20 Opioid dependence, uncomplicated; F14.20 Cocaine dependence, uncomplicated; F12.20 Cannabis dependence, uncomplicated; F17.210 Nicotine dependence, cigarettes, uncomplicated; F19.24 Other psychoactive substance dependence with psychoactive substance-induced mood disorder; G47.00 Insomnia, unspecified